=== PATIENT | female | born 1960 | race Caucasian/White ===

== ENCOUNTER → 2016-04-21 | Outpatient (CLI) | payer BC ==
[~2016-04-21] MED LIST: SYNTHROID0.15 MG PO; SYNTHROID0.175 MG PO; SYNTHROID175 MCG PO; ZANTAC150 MG PO
[2016-04-21 09:50] VITALS: BP 134/82
== END ==
LOC: AMSURD 09:41
DX: Z00.00 Encounter for general adult medical examination without abnormal findings (principal)